=== PATIENT | male | born 1980 | race Caucasian/White ===

== ENCOUNTER 2022-01-09 23:47 | Emergency (ER) | payer SELFPAY ==
[2022-01-10] MEDS ORDERED: Albuterol/Ipratropium 3.0-0.5 MG/3 ML Neb Soln NEB ONE (00:01)
[2022-01-10] MEDS ORDERED: Albuterol/Ipratropium 3.0-0.5 MG/3 ML Neb Soln ONE (00:04)
[2022-01-10 00:45] LABS: CORONAVIRUS COVID-19 NAA NEGATIVE (NEGATIVE)
[2022-01-10 01:40] LABS: INFLUENZA A NAA NEGATIVE (NEGATIVE); INFLUENZA B NAA NEGATIVE (NEGATIVE)
== END 2022-01-10 01:07 | disposition home or self-care (01) ==
LOC: MW.ED 23:47
DX: J20.9 Acute bronchitis, unspecified (principal); Z20.822 Contact with and (suspected) exposure to COVID-19
CPT/HCPCS: 0240U; 71045; 99284; J7620-GY